=== PATIENT | female | born 1995 | race Caucasian/White ===

== ENCOUNTER 2018-06-15 22:14 | Emergency (ER) | payer OTHER ==
[2018-06-15] MEDS: ONDANSETRON 4MG/2ML VIAL (J2405) IV (22:45)
[2018-06-15] MEDS: MORPHINE 4 MG/ML 1ML VIAL/SYRINGE (J2270) IV (22:45)
[2018-06-15] MEDS: NS 1,000 ML IV (22:46)
[2018-06-15] MEDS: SILVER SULFADIAZINE 1% CR 50 GM JAR TOP (23:30)
[2018-06-16] MEDS: OXYCODONE/APAP 5MG/325MG(BULK FOR ED) 1 TABLET PO (00:15)
== END 2018-06-16 00:19 | disposition home or self-care (01) ==
LOC: M ED 06-16 00:19
DX: T22.111A Burn of first degree of right forearm, initial encounter (principal); T22.112A Burn of first degree of left forearm, initial encounter; T22.211A Burn of second degree of right forearm, initial encounter; T23.201A Burn of second degree of right hand, unspecified site, initial encounter; X12.XXXA Contact with other hot fluids, initial encounter; Y92.89 Other specified places as the place of occurrence of the external cause; Y99.0 Civilian activity done for income or pay; F17.210 Nicotine dependence, cigarettes, uncomplicated
CPT/HCPCS: J2270

== ENCOUNTER 2018-06-16 21:02 | Emergency (ER) | payer OTHER | END 2018-06-16 22:46 | disposition home or self-care (01) | LOC: M ED 21:02 | DX: S56.911A Strain of unspecified muscles, fascia and tendons at forearm level, right arm, initial encounter (principal); X58.XXXA Exposure to other specified factors, initial encounter; Y92.9 Unspecified place or not applicable; Y93.9 Activity, unspecified; Y99.9 Unspecified external cause status; Z72.0 Tobacco use | CPT/HCPCS: 99282 ==